=== PATIENT | male | born 1965 | race Caucasian/White ===

== ENCOUNTER 2025-02-26 11:04 | Emergency (ER) | payer OTHER, SELFPAY ==
--- NOTE | ~2025-02-26 | XR_ITS ---
EXAMINATION: XR knee LT min 4V DATE: 02/26/2025 11:30 INDICATION: Left knee swelling post fall from ladder TECHNIQUE: Anteroposterior, 2 oblique and crosstable lateral views of the left knee were obtained COMPARISON: None. FINDINGS: Alignment is normal. No fracture. Chondrocalcinosis at the medial and lateral compartments of the le ft knee. There are small marginal osteophytes all 3 compartments of the left knee. Moderate joint spa ce narrowing in the lateral compartment best appreciated on the lateral projection. Moderate-sized le ft knee joint effusion without layering lipohemarthrosis. Soft tissues are otherwise unremarkable. IMPRESSION: 1. Congestive calcinosis of the left knee with at least moderate severity lateral compartment predomi nant tricompartmental osteoarthritis at the left knee although severity of joint space narrowing can be underestimated on nonweightbearing imaging. 2. Moderate-sized left knee joint effusion. Reviewed, dictated and finalized at location A. IMPRESSION: 1. Congestive calcinosis of the left knee with at least moderate severity later al compartment predominant tricompartmental osteoarthritis at the left knee alt celeste severity of joint space narrowing can be underestimated on nonweightbeari ng imaging. 2. Moderate-sized left knee joint effusion.
--- OUTSIDE RECORDS SUMMARY | 2025-02-26 11:06 | XMS_ITS | Referral Summary ---
Author Organization [facility] Address [address] [place] [id number] Care Team Providers Care Transmission Systems Operator Name Role Phone No, Physician Primary Care Provider [phone] Allergies No known active allergies Medications HYDROcodone-milena taminophen (NORCO) 5-325 mg per tabletIndicatio ns:Pain Take 1-2 tablets every 4 hours as needed for pain 20 tablet 04/25/2021 Active Active Problems Problem Noted Date Diagnosed Date Acute medial meniscus tear of right knee 021 Overview (04/16/2021): Added automatically from request for surgery [id number] Social History Tobacco Use Types Packs/Day Years Used Date Smoking Tobacco: Never Smokeless Tobacco: Never AUDIT-C Answer Date Recorded Q1: How often do you have a drink containing alc ohol? Monthly or less 04/17/2021 Q2: How many drinks containi ng alcohol do you have on a typical day when you are drinking? 1 or 2 04/17/2021 Q3: How often do you have si x or more drinks on one occasion? 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 Gender Identity Not on file Sexual Orientation Not on file Occupation Industry Job Start Date Job End Date [employer] Not on file Not on file Not on file Last Filed Vital Signs Vital Sign Reading Time Taken Comments Blood Pressure 136/88 04/25/2021 2:30 PM CDT Pulse 72 04/25/2021 2:30 PM CDT Temperature 36.2 C (97.2 F) 04/25/2021 2:30 PM CDT Respiratory Rate 16 04/25/2021 2:30 PM CDT Oxygen Saturation 100% 04/25/2021 2:30 PM CDT Inhaled Oxygen Concentration - - Weight 81 kg (178 lb 9.6 oz) 04/25/2021 9:58 AM CDT Height 167.6 cm (5' 6) 04/25/2021 9:58 AM CDT Body Mass Index 28.83 04/25/2021 9:58 AM CDT Plan of Treatment Not on file Insurance Care Teams Transmission Systems Operator Relationship Specialty Start Date End Date No, Physician PCP - General 03/12/21
--- OUTSIDE RECORDS SUMMARY | 2025-02-26 11:06 | XMS_ITS | Clinical Summary ---
Author Organization [facility] Address [address] [place] [id number] Care Team Providers Care Food Editor Name Role Phone No, Physician Primary Care Provider [phone] Allergies No known active allergies Medications HYDROcodone-milena taminophen (NORCO) 5-325 mg per tabletIndicatio ns:Pain Take 1-2 tablets every 4 hours as needed for pain 20 tablet 04/25/2021 Active Active Problems Problem Noted Date Diagnosed Date Acute medial meniscus tear of right knee 021 Overview (04/16/2021): Added automatically from request for surgery [id number] Surgical History Surgery Date Site/Laterality Comments KNEE ARTHROSCOPY Left torn cartilage KNEE ARTHROSCOPY Right Medical History Medical History Date Comments Right knee injury 03/08/2021 Complex tear of medial meniscus of right knee Motion sickness Family History Medical History Relation Name Comments Cancer Mother Heart disease Mother Relation Name Status Comments Mother Social History Tobacco Use Types Packs/Day Years [...] on file 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
--- OUTSIDE RECORDS SUMMARY | 2025-02-26 11:06 | XMS_ITS | Clinical Summary ---
Author Organization [facility] Address [facility] [place] [address] Care Team Providers Care Punch Press Operator Helper Name Role Phone Unavailable Primary Care Provider Unavailabl e Social History Tobacco Use Types Packs/Day Years Used Date Smoking Tobacco: Never Assessed Sex and Gender Information Value Date Recorded Sex Assigned at Not on file Legal Sex Male 5:58 PM CDT Gender Identity Not on file Sexual Orientation Not on file Plan of Treatment Health Maintenance Due Date Last Done Comments Colorectal Cancer Screening Colonoscopy (10 Years) 1964 Annual Physical 1967 Hepatitis C 1982 DTaP, Tdap and Td Vaccines ( 1 - Tdap) 1983 Pneumococcal Vaccine: 50+ Ye ars (1 of 1 - PCV) 2014 Zoster Vaccines (1 of 2) 2014 COVID-19 Vaccine ( - 2023-2 5 season) 2024 RSV Immunization or 60+ Years (1 - 1-dose 75+ series) 2039 Meningococcal B Vaccine Aged Out No l onger eligible based on patient's age to complete this topic Meningococcal Vaccine Aged Out No gama tristan eligible based on patient's age to complete this topic RSV Immunizations Under 20 Months Aged Out No longer eligible based on patient's age to complete this topic
--- OUTSIDE RECORDS SUMMARY | 2025-02-26 13:05 | XMS_ITS | Referral Summary ---
Author Organization [facility] Address [address] [place] [id number] Care Team Providers Care Learning And Development Manager Name Role Phone No, Physician Primary Care Provider [phone] Allergies No known active allergies Medications HYDROcodone-milena taminophen (NORCO) 5-325 mg per tabletIndicatio ns:Pain Take 1-2 tablets every 4 hours as needed for pain 20 tablet 04/25/2021 Active Active Problems Problem Noted Date Diagnosed Date Acute medial meniscus tear of right knee 021 Overview (04/16/2021): Added automatically from request for surgery [id number] Social History Tobacco Use Types Packs/Day Years [...] on file 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
--- OUTSIDE RECORDS SUMMARY | 2025-02-26 13:05 | XMS_ITS | Clinical Summary ---
Author Organization [facility] Address [facility] [place] [address] Care Team Providers Care Digester Hand Name Role Phone Unavailable Primary Care Provider [...]
--- OUTSIDE RECORDS SUMMARY | 2025-02-26 13:05 | XMS_ITS | Clinical Summary ---
Author Organization [facility] Address [address] [place] [id number] Care Team Providers Care Principal Biostatistician Name Role Phone No, Physician Primary Care Provider [phone] Allergies No known active allergies Medications HYDROcodone-milena taminophen (NORCO) 5-325 mg per tabletIndicatio ns:Pain Take 1-2 tablets every 4 hours as needed for pain 20 tablet 04/25/2021 Active Active Problems Problem Noted Date Diagnosed Date Acute medial meniscus tear of right knee 021 Overview (04/16/2021): Added automatically from request for surgery [id number] Surgical History Surgery Date Site/Laterality Comments KNEE [...] on file 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
[2025-02-26 14:49] VITALS: BP 116/78; PULSE 89; RESP 18; TEMP 36.3; O2SAT 100
--- NOTE | 2025-02-26 15:00 | ED.LOWEXIN ---
HPI - Extremity Injury (Lower) General Chief Complaint: Extremity Injury, Lower Stated Complaint: left knee pain Time Seen by Provider: 02/26/25 12:37 History of Present Illness HPI Narrative: 59-year-old male with history of arthritis presenting to the emergency department 5 days after falling down for feet on a ladder. He struck the lateral aspect of his left knee against the latter railing. Initially did not have any significant pain was ambulatory in going back to work without any difficulty. The next several days he started getting some more pain and swelling to his left knee and then today states that pain and swelling were more intense and he was concerned based on the worsening symptoms. No neuropathy or paresthesias. No other injuries. Has been taking ibuprofen twice daily but no other interventions or compression. Related Data Allergies Allergy/AdvReac Type Severity Reaction Status Date / Time No Known Allergies Allergy Verified 02/26/25 11:05 Review of Systems Review of Systems: As reviewed above in HPI Exam Narrative: GENERAL: [Well-appearing, well-nourished, and in no acute distress.] HEAD: [Normocephalic, atraumatic.] EYES: [PERRLA and EOMI.] ENT: Nares clear, no rhinorrhea or epistaxis. Mucous membranes moist. NECK: Supple. CHEST: [Clear to auscultation. No respiratory distress.] HEART: [Regular rate and rhythm]. No murmur heard. [Normal peripheral pulses.] ABDOMEN: [Soft, nondistended], [nontender], [No rigidity or guarding] EXTREMITIES: Normal range of motion, intact extensor mechanism at the knee and hip. Ankle dorsi and plantar flexion is full. Effusion around the left knee and prepatellar area. No tenderness along the patella or the patellar tendon or quadriceps tendon. No laxity with valgus or varus stress testing. Negative Vipin's testing. Tenderness reproducible along the lateral aspect left knee but not along the joint line. Mild tenderness to the posterior lateral aspect left knee. Ambulatory. SKIN: Warm, dry, no rash. NEURO: [No focal deficits]. Alert and oriented [x3.] PSYCH: [Normal mood and affect.] Course Vital Signs Vital signs: Vital Signs Temperature 36.3 C L 02/26/25 14:49 Pulse Rate 89 02/26/25 14:49 Respiratory Rate 18 02/26/25 14:49 Blood Pressure 116/78 02/26/25 14:49 Pulse Oximetry 100 02/26/25 14:49 Temperature 36.3 C L 02/26/25 14:49 Pulse Rate 89 02/26/25 14:49 Respiratory Rate 18 02/26/25 14:49 Blood Pressure 116/78 02/26/25 14:49 Pulse Oximetry 100 02/26/25 14:49 MDM - Extremity Injury (Lower) MDM Narrative Medical decision making narrative: 59-year-old male with history of arthritis presenting to the emergency department 5 days after falling down for feet on a ladder. He struck the lateral aspect of his left knee against the latter railing. Initially did not have any significant pain was ambulatory in going back to work without any difficulty. The next several days he started getting some more pain and swelling to his left knee and then today states that pain and swelling were more intense and he was concerned based on the worsening symptoms. No neuropathy or paresthesias. No other injuries. Has been taking ibuprofen twice daily but no other interventions or compression. Normal range of motion, intact extensor mechanism at the knee and hip. Ankle dorsi and plantar flexion is full. Effusion around the left knee and prepatellar area. No tenderness along the patella or the patellar tendon or quadriceps tendon. No laxity with valgus or varus stress testing. Negative Vipin's testing. Tenderness reproducible along the lateral aspect left knee but not along the joint line. Mild tenderness to the posterior lateral aspect left knee. Ambulatory. Patient likely has a traumatic hemarthrosis or swelling from pain/arthritis in the leg. Low suspicion fracture or internal derangement given the good range of motion and no laxity on stress testing at bedside. Normal distal pulses and warm extremity otherwise. Normal vital signs. X-rays were obtained he was given Toradol for analgesia. X-rays do show try car part mental are osteoarthritis, congenital calcinosis and some joint space narrowing. Moderate-sized left knee joint effusion consists with exam. No fractures or dislocations normal alignment otherwise. Patient was given Meliton wrap and prescription for Toradol and safe for discharge home with return precautions and follow-up with orthopedics as needed. Able to return to work at this time. Medical Records Attestation: I reviewed the patient's medical records. Imaging Data Attestation: I personally reviewed and interpreted this imaging study as follows: My impression: Impressions Knee X-Ray 02/26/25 11:44 IMPRESSION: 1. Congestive calcinosis of the left knee with at least moderate severity lateral compartment predominant tricompartmental osteoarthritis at the left knee although severity of joint space narrowing can be underestimated on nonweightbearing imaging. 2. Moderate-sized left knee joint effusion. Discharge Plan Discharge Clinical Impression: Left knee sprain, Effusion of left knee joint Patient Disposition: Home Condition: Stable Instructions: Antibiotic Form, Swollen Knee Joint (ED), Knee Pain (ED) Additional Instructions: X-rays do not show any fractures in the alignment of the knees intact. You do have multiple areas of osteoarthritis and a knee effusion likely combination of fluid from the arthritis and possibility of some blood from the trauma. We will send you home with pain medications as well as recommendations to keep the area bandaged with an Meliton wrap and elevated when not using it. Return to work and a back to activities as tolerated. If pain is not improving or symptoms worsen follow-up with orthopedics or return with any emergent concerns. Patient Language: Hebrew Prescriptions: New acetaminophen [Tylenol Extra Strength] 500 mg tablet 1,000 mg PO TID PRN (Reason: pain) Qty: 30 0RF ketorolac 10 mg tablet 10 mg PO Q8H PRN (Reason: pain) 5 Days Qty: 20 0RF Rx Instructions: maximum total duration of 5 days from all oral, intranasal, or parenteral formulations lidocaine 5 % adhesive patch,medicated 1 patch topical DAILY Qty: 15 0RF Rx Instructions: leave on most painful area for up to 12 hrs Follow-up/Referrals: Caesar Gregory MD [Physician] - 1 Week (Knee sprain) PHYSICIAN,PRESCRIPTION EYEGLASS MAKER [Primary Care Provider] - Time of Disposition: 15:06
[2025-02-26] MEDS: KETOROLAC 10 MG TABLET PO (15:13)
== END 2025-02-26 15:23 | disposition home or self-care (01) ==
PROVIDERS: Emergency Provider Student in an Organized Health Care Education/Training Program
DX: S83.92XA Sprain of unspecified site of left knee, initial encounter (principal); M17.12 Unilateral primary osteoarthritis, left knee; W11.XXXA Fall on and from ladder, initial encounter
CPT/HCPCS: 73564; 99283; A9270